=== PATIENT | female | born 1985 | race Caucasian/White ===

== ENCOUNTER 2022-11-20 09:00 | Day surgery (SDC) | payer MEDICAID, SELFPAY ==
[2022-11-19 08:26] VITALS: BMI 47.5
[2022-11-20] VITALS (9 sets, daily range): BP systolic 128–174; BP diastolic 92–117; PULSE 84–104; RESP 8–18; TEMP 36.1; O2SAT 92–98
[2022-11-20] MEDS: sodium chloride 0.9% 1,000 ML 30 ML IV (09:35)
--- NOTE | 2022-11-20 10:03 | W.PM.OPSUD ---
Surgery/Procedure H&P Update DATE OF PROCEDURE: November 20, 2022 DATE H&P PERFORMED: 11/12/22 H&P UPDATE INFORMATION: I have reviewed H&P completed within last 30 days, I have examined patient prior to procedure and No changes to prior documentation CHANGES TO PREVIOUS DOCUMENTATION: No changes PREOP DIAGNOSIS: Chronic mucoid otitis media bilaterally. PRIMARY INDICATION FOR PROCEDURE: Chronic mucoid otitis media and chronic eustachian tube dysfunction bilateral PLANNED PROCEDURE: Operation Date: 11/20/22 11:15 Proposed Procedures p 66239 - myringotomy with bilateral tube insertion H69.83, H90.0,H65.33(Bilateral) - Floyd Hernandez MD
[2022-11-20 10:25] LABS: Blood Urea Nitrogen 11 mg/dL (6-20); Calcium 8.7 mg/dL (8.5-10.5); Carbon Dioxide 22 mmol/L (22-29); Chloride 102 mmol/L (98-107); Glomerular Filtration Rate 137.4 mL/min (90-130); Glucose 117 mg/dL (65-115); Osmolality Calculated 280 mOsm/kg (285-295); Sodium 135 mmol/L (136-145)
[2022-11-20 10:28] LABS: Anion Gap 15.3 (5-19); Potassium 4.3 mmol/L (3.5-5.1)
--- NOTE | 2022-11-20 12:40 | P.ANESASSM_ITS ---
Pre-Anesthetic Assessment Height/Weight: Height 1.57 m Weight 117.934 kg Temp Pulse Resp BP Pulse Ox O2 Del Method O2 Flow Rate 97 F L 104 H 18 151/100 98 Simple Mask 8 11/20/22 12:58 11/20/22 12:58 11/20/22 12:58 11/20/22 12:58 11/20/22 12:58 11/20/22 12:58 11/20/22 12:58 Preop Diagnosis: Chronic mucoid otitis media bilaterally. Operation Date: 11/20/22 11:15 Proposed Procedures p [id number] - myringotomy with bilateral tube insertion H69.83, H90.0,H65.33(Bilateral) - Floyd Hernandez MD Familial anesthetic complications: none Was Beta Soto taken within 24 hours: N/A Was Clonidine taken within 24 hours: N/A Last intake: Intake Last Liquid Date 11/19/22 Last Liquid Time 23:59 Last Solid Date 11/19/22 Last Solid Time 20:00 Last Intake: 00:00 Social Tobacco (1ppd) and No alcohol Exam alert and oriented x 3 Airway Submandibular: within normal limits Cervical ROM: within normal limits Mallampati: Class III Dentition: false History/ROS No significant history except as noted Pulmonary Asthma CV/HEM Arrythmia and Hypertension None reported Hepatic None reported GI Gastroesophageal Reflux Disease Metabolic Hyperlipidemia and Morbid Obesity [facility] [place] None reported Neuropsych Anxiety and Seizure (last one a couple months ago does not go to ER when seizures occur.) Anesthetic Plan ASA status: 3 Anesthesia: Anesthesia Evaluation and General Risk of > 500 ml blood loss (7ml/kg in children): No Medications/Allergies Home Medications Medication Instructions Recorded Confirmed Last Taken Type albuterol sulfate 90 mcg/actuation 1 inh inhalation QID 02/21/21 11/19/22 11/13/22 History aerosol inhaler (ProAir HFA) cyclobenzaprine 10 mg tablet 10 mg PO TID 02/21/21 11/19/22 11/16/22 History lisinopril 2.5 mg tablet 2.5 mg PO DAILY 02/21/21 11/19/22 11/18/22 History fluticasone propionate 50 2 spray intranasal DAILY PRN nasal 09/23/22 11/19/22 11/13/22 Rx mcg/actuation nasal congestion 12 months #16 grams spray,suspension cariprazine 3 mg capsule (Vraylar) 3 mg PO DAILY 11/19/22 11/19/22 11/13/22 History Allergies Allergy/AdvReac Type Severity Reaction Status Date / Time phenazopyridine Allergy Severe HIVES Verified 11/12/22 15:45 [From Pyridium] sulfamethoxazole Allergy Severe BREATHING Verified 11/12/22 15:45 [From Bactrim] DIFFICULTY trimethoprim [From Bactrim] Allergy Severe BREATHING Verified 11/12/22 15:45 DIFFICULTY coconut Allergy ALGY-Anaphy Verified 11/12/22 15:45 laxis fentanyl AdvReac ADR-Irritab Verified 11/20/22 09:24 le Current Medications Generic Name Dose Route Start Last Admin Trade Name Georgeq PRN Reason Stop Dose Admin Sodium Chloride 1,000 mls @ 30 mls/hr 11/20/22 09:15 11/20/22 09:35 Sodium Chloride 0.9% IV 11/21/22 09:14 30 mls/hr .Q24H ABA Administration PFSH Anesthesia Medical History History of COVID-19 History of otitis externa Social History Smoking and tobacco status: current every day smoker (pack a day ) cigarettes Packs smoked per day: 1 Years cigarettes smoked: 28 Female Reproductive History Date of last menstrual period: 11/09/22 Data Anesthesia 11/20/22 09:34 BMP 11/20/22 09:34 Sodium 135 L Potassium 4.3 Chloride 102 Carbon Dioxide 22 BUN 11 Creatinine 0.5 Glucose 117 H Calcium 8.7 Cardiac Studies: No Data to Display
[2022-11-20] MEDS: ofloxacin 0.3% otic 5 mL Btl 3 DROP EAR-BOTH (12:42)
--- NOTE | 2022-11-20 12:54 | P.OP_ITS ---
Operative Report Date of procedure: November 20, 2022 Pre-op diagnosis: Preop Diagnosis Chronic mucoid otitis media bilaterally. Post-op diagnosis: Chronic mucoid otitis media bilaterally Post-op findings: Chronic mucoid otitis media with chronic tympanic membrane scarring Procedure done: Bilateral myringotomy with Dura-Vent tube insertion Implants: Dura-Vent tubes x2 Specimens removed/disposition: No specimen Pathology: Nothing for pathology Surgeon: Floyd Hernandez MD Anesthesia: General Estimated blood loss: 5 mL Complications: No complications encountered Findings: Patient has extremely tortuous canals with an anterior prominence at the isthmus giving very poor access to the tympanic membrane. Attempts to place a tube in both ears in the office were not possible because of the severe bend. Therefore the patient will need to come to the operating room to have this done under general anesthesia. Patient has chronic mucoid otitis media and associated chronic eustachian tube dysfunction and conductive hearing loss. Brief History: 37-year-old female patient with chronic otitis media and chronic mucoid otitis media problems with associated chronic eustachian tube dysfunction and conductive hearing loss. Being brought to the operating room at this time to undergo myringotomy with tube insertion bilaterally. Attempts in the office were unsuccessful due to the tortuous manner of her ear canal and the anterior prominence at the isthmus. The procedure its risks and complications were explained in detail in the office setting. These risks included bleeding and infection and scarring and hearing loss and balance system disturbance and facial nerve weakness and change in taste sensation and foreign body reaction as well as cholesteatoma and more serious risk such as heart attack or stroke or not surviving the surgery. With these things understood informed consent was granted and witnessed. Patient understands that she is likely to have to have tubes replaced in the future if this helps her and these current tubes extruded. Procedure: Description of procedure: The patient was placed on the operating table in the supine position. Adequate general LMA anesthesia was obtained. A timeout was accomplished identifying the patient date of planned procedure allergies fire risk and medications given. With all in agreement the procedure continued. A microscope was used to view through an ear speculum in the right external canal. Cleaning with suction was accomplished. The tympanic membrane was then visualized. The posterior aspect was clearly visible however the inferior and anterior portion where the tube should be placed was very difficult to see. I made an incision in the anterior and inferior aspect but not in a radial direction as that could not be accomplished. It was in a horizontal direction. The tube was then inserted. The Dura-Vent tube was positioned and making sure the flanges were behind the tympanic membrane in the middle ear. The lumen was then irrigated with hydrogen peroxide and suctioned clean. Then ofloxacin drops were placed in the canal and a piece of cotton was placed at the meatus. An identical situation was evident in the left ear and again the the incision was created in a horizontal direction inferiorly and the Dura-Vent tube used inserted positioned and irrigated with peroxide and followed by ofloxacin drops. Then cotton was placed at the meatus. The patient tolerated the procedure well had an estimated blood loss of 5 mL or less and arrived in recovery in stable co ndition.
--- NOTE | 2022-11-20 16:39 | ANE.PACU2 ---
Inpatient post-anesthesia follow up: Airway intact: Yes Vital signs: Temperature 97 F Pulse Rate 86 Respiratory Rate 18 Blood Pressure 141/117 Pulse Oximetry 94 Oxygen Delivery Me thod Room Air Oxygen Flow Rate 8 Fraction of Inspir ed Oxygen Hydration adequate: Yes Nausea and vomiting: No Pain level: 2 Mental status: Baseline
== END 2022-11-20 13:52 | disposition home or self-care (01) ==
PROVIDERS: Anesthesiology; PCP Family Medicine; Visit Provider Otolaryngology
PROC: (CPT 69420; principal; 2022-11-20 11:10)
DX: H65.33 Chronic mucoid otitis media, bilateral (principal); I10 Essential (primary) hypertension; E78.5 Hyperlipidemia, unspecified; E66.01 Morbid (severe) obesity due to excess calories; Z68.42 Body mass index [BMI] 45.0-49.9, adult; F17.210 Nicotine dependence, cigarettes, uncomplicated; Z86.16 Personal history of COVID-19; Z88.2 Allergy status to sulfonamides
CPT/HCPCS: 69436; 80048; J2250; J2704; J3010; J7030